=== PATIENT | female | born 1950 | race Caucasian/White ===

== ENCOUNTER → 2017-10-16 | Outpatient (CLI) | payer BC, MEDICARE ==
[~2017-10-16] MED LIST: ACHYD1T PO; ASPI-992 PO; DCS100C PO; GARL10002 PO; GARL5000 PO; HYDR-3730 PO; IBP600T1 PO; IBP800T PO; IBUP-2055 PO
--- NOTE | 2017-10-16 09:47 | Diagnostic Imaging Report ---
Procedure: Pelvic ultrasound. Indication: Pelvic pain. FINDINGS: The previous pelvic ultrasound exam performed on 04/14/2012 noted 2 cm right adnexal mass. This was felt to be suspicious for a pedunculated fibroid. In the interval since the prior exam, the uterus and right ovary have been surgically removed. On this study there is no pelvic mass or free fluid collection evident. The left ovary could not be identified. The bladder was only partially filled and consequently not well evaluated. There is no obvious bladder abnormality evident. Impression: 1. There is no evidence for an acute abnormality in this post hysterectomy/right oophorectomy patient. 2. If clinical concern regarding an acute abnormality persists, then CT of the abdomen and pelvis would be recommended for further study. Dictated by: Dictated on workstation # [id number]
== END ==
LOC: RAD 08:56
PROVIDERS: ATTEND Nurse Practitioner Family
DX: R10.2 Pelvic and perineal pain (principal)
CPT/HCPCS: 76830; 76856